=== PATIENT | female | born 1990 | race American Indian/Alaskan Native ===

== ENCOUNTER 2021-05-24 19:33 | Emergency (ER) | payer MEDICAID ==
[2021-05-24 20:13] VITALS: BP 146/85
[2021-05-24 22:26] LABS: Bacteria,Urine 2+ /HPF (Negative); Bilirubin,Urine NEG (Negative); Blood,Urine NEG (Negative); Color,Urine Yellow (Yellow); Protein,Urine <15 mg/dL mg/dL (Negative); Urobilinogen,Urine < 2.0 mg/dL (<2.0)
[2021-05-24 22:30] LABS: Amphetamine Screen,Urine PRESUMPTIVE NEGATIVE; Benzodiazepines Screen,Urine PRESUMPTIVE POSITIVE; Cannabinoid Screen,Urine PRESUMPTIVE NEGATIVE; Cocaine Screen,Urine PRESUMPTIVE NEGATIVE; Methadone Screen,Urine PRESUMPTIVE NEGATIVE; Opiate Screen,Urine PRESUMPTIVE NEGATIVE
--- NOTE | 2021-05-24 22:52 | Emergency Department Report ---
ED Psych HPI - General Chief Complaint: Psych Stated Complaint: MENTAL EVAL Time Seen by Provider: 05/24/21 22:17 Source: patient, family Mode of arrival: Ambulatory - History of Present Illness Initial Comments: 30-year-old female with a past medical history of depression ADHD presents to the hospital stating that she is reaching her breaking point. Patient states she is overwhelmed due to multiple life stressors. 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 Patient is currently seeing a psychiatrist and takes Xanax as needed, Adderall, and antidepressants. She also takes Ambien for sleep. Patient denies alcohol or drug abuse. She denies psychosis, suicidal, or homicidal ideation. Patient states she uses drained and overwhelmed from trying to be super woman. Patient states she came to the ED to oblige her family's request to seek ER treatment but feels that she needs psychotherapy and further support and needs to make another appointment with her current psychiatrist pts number [phone] - Related Data Allergies Allergy/AdvReac Type Severity Reaction Status Date / Time No Known Allergies Allergy Unverified 05/24/21 20:07 ED Review of Systems ROS: Stated complaint: MENTAL EVAL Other details as noted in HPI Comment: All other systems reviewed and negative ED Physical Exam - General Limitations: No Limitations - Other Other exam information: General: No acute distress Head: Atraumatic Eyes: normal appearance ENT: Moist mucous membranes Neck: Normal appearance, no midline tenderness Chest: Clear to auscultation bilaterally CV: Regular rate and rhythm Abdomen: Soft, normal bowel sounds, nontender, nondistended, no rebound or guarding Back: Normal inspection Extremity: Normal inspection, full range of motion Neuro: Alert O x 3, no facial asymmetry, speech clear, no gross motor sensory deficit Psych: Appropriate behavior Skin: No rash ED Course Vital Signs 05/24/21 20:01 Temperature 98.2 F Pulse Rate 120 H Respiratory 18 Rate Blood Pressure 146/85 O2 Sat by Pulse 100 Oximetry ED Medical Decision Making - Medical Decision Making 30-year-old female with depression and ADHD presents to the hospital with depression and stress. Patient does not endorse suicidal ideation, homicidal ideation, or psychosis and does not require emergent inpatient psychiatric evaluation at this time. Patient does have a psychiatrist and plans to make an appointment. Patient also plans to seek psychotherapy and further outpatient support groups. 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 ED Disposition Clinical Impression: Depression, Stress Disposition: 01 HOME / SELF CARE / HOMELESS Is pt being admited?: No Does the pt Need Aspirin: No Condition: Stable Instructions: Living With Depression, Mindfulness-Based Stress Reduction, Stress, Adult Additional Instructions: You are being discharged prior to your lab results as per your request. Continue take your medications as prescribed. Follow-up with your psychiatrist and seek psychotherapy. Please return if symptoms worsen as indicated by your discharge instructions. Referrals: PRIMARY CARE, [Primary Care Provider] - 3-5 Days [facility] [Outside] - 3-5 Days Time of Disposition: 22:51
[2021-05-24 23:15] LABS: HCG Qualitative,Urine Negative (Negative)
== END 2021-05-24 23:11 | disposition home or self-care (01) ==
LOC: ED 19:33
DX: F43.9 Reaction to severe stress, unspecified (principal); F32.A Depression, unspecified; Z79.899 Other long term (current) drug therapy
CPT/HCPCS: 80307; 81001; 81025; 99283